=== PATIENT | male | born 1955 | race Caucasian/White ===

== ENCOUNTER 2016-05-09 10:25 | Emergency (ER) | payer OTHER ==
[2016-05-09 10:48] VITALS: RESP 17; TEMP 97.6
--- NOTE | 2016-05-09 11:39 | DI ---
History: Right knee pain. Recent trauma. Procedure: 4 view study. Prior examination: None. Findings: Distal femoral bone infarct identified, incidental finding. Degenerative change of the patellofemoral junction, mild. No effusion seen. Patellofemoral junction a nd both major articular compartments appear normal. Impression: Minimal degenerative changes patellofemoral junction. No narrowing of the joint space griselda ntified, however. Incidental bone infarct distal femur No evidence of fracture
--- NOTE | 2016-05-10 01:36 | PDOC ---
Lower Extremity Injury HPI - General Chief Complaint: Fall Stated Complaint: pain right knee Date Seen by Provider: 05/09/16 Time Seen by Provider: 10:40 Source: POSITIVE: Patient Exam Limitations: POSITIVE: No limitations Nurse's Notes Reviewed & Considered: Yes - History of Present Illness Initial Comments: The patient is a 60-year-old male. He states that 5 days ago he slipped on some ice and "I twisted my right knee". Since then he had some discomfort medial to the right patella. He has been ambulating without difficulty. No swelling. No sensory, motor or vascular deficits Have you received a tetanus shot in the past 10 years?: No Body Location Affected: REPORTS: Lower Extremity (R) Timing: REPORTS: Abrupt Duration: <1 week (5 days) Severity: Mild Quality: REPORTS: "Pain" Location at Time of Onset: REPORTS: Work Context of Injury: REPORTS: Twist Location of Injury: REPORTS: Knee (R) Modifying Factors: improves with: Walking Associated Symptoms: DENIES: Unable to Bear Weight, Snapping, Popping Sensation , Became Dizzy, Fainted, Seizure, Other Any Prior Injuries Related to Current Complaint?: No - Patient Home Medications Home Medications: Home Medications Fluoxetine HCl [Prozac] 1 cap PO QD #90 cap 03/05/16 Olanzapine [Zyprexa] 10 mg PO QD #30 tab 03/05/16 Omeprazole 1 cap PO DAILY #90 cap 03/05/16 Pravastatin Sodium [Pravachol] 1 tab PO QD #90 tab 03/05/16 Tamsulosin HCl [Flomax] 0.4 mg PO DAILY #90 cap 03/05/16 Venlafaxine HCl [Venlafaxine Hcl Er] 75 mg PO QD #90 cap 03/05/16 - Patient Allergies Allergies/Adverse Reactions: Allergies Allergy/AdvReac Type Severity Reaction Status Date / Time Penicillins Allergy Intermediate CHILDHOOD Verified 05/09/16 10:34 / RASH codeine AdvReac Intermediate ITCHING Verified 05/09/16 10:34 Past Medical History - heen HEENT History: Denies History Cardiovascular History: Hyperlipidemia Respiratory History: Denies History Gastrointestinal History: GERD Genitourinary History: Other (please comment) Additional Genitourinary History: BPH Endocrine History: Denies History Musculoskeletal History: Denies History Prosthesis or Implant: No Neurological History: Denies History Blood Disorders: Denies History Psychiatric History: Depression History of Sexually Transmitted Diseases: No Cancer History: Denies History In Past Year Been Physically Harmed or Verbally Threatened: No (PER PATIENT) History of MDRO: No History of Other Communicable Diseases: No Tobacco Use: Never Smoker Alcohol Use: Rarely Substance Use Type: None Previous Surgical History: Yes Type / Date of Surgery: LEFT INGUINAL HERNIA REPAIR, TONSILLECTOMY Anesthesia Reactions: No Malignant Hyperthermia: No Family History of Malignant Hyperthermia: No Significant Family History: No pertinent family hx Past Medical History Reviewed: Reviewed - No Changes ROS - Limitations ROS Limitations: No Limitations Constitution: REPORTS: Denies Symptoms Cardiovascular: REPORTS: Denies Cardiac Symptoms Respiratory: REPORTS: Denies Resp Symptoms Neurological: REPORTS: Denies Neuro Symptoms Gastrointestinal: REPORTS: Denies GI Symptoms Endocrine: REPORTS: Denies Symptoms Musculoskeletal: REPORTS: Joint Pain (Right knee) Genitourinary: REPORTS: Denies Symptoms Eyes: REPORTS: Denies Symptoms ENT: REPORTS: Denies Symptoms Skin: REPORTS: Denies Skin Symptoms Lympathic: REPORTS: Denies Lympathic Symptoms Immunologic: POSITIVE: Denies Symptoms Psychiatric: POSITIVE: Denies Psych Symptoms Lower Ext Complaint Exam - General Appearance General Appearance: POSITIVE: Alert, Cooperative, No Acute Distress Reflexes: Patellar (R): 2+, Patellar (L): 2+ - Extremities Lower Extremity: POSITIVE: Normal ROM, Normal Color, Normal Temperature, Skin Intact, No Joint Swelling, No Evidence of Ischemia, Stable, Soft Tissue Tenderness (Mild, medial to right patella), Bony Tenderness (Mild, medial to right patella), See Diagram. NEGATIVE: Swelling, Ecchymosis, Erythema, Deformity, Pulse Deficit, Limited ROM, Laxity of Ligaments, Joint Effusion, Hip Pain on Leg Movement Lower Extremity Ligament: NEGATIVE: Pain on Anterior Drawer, Pain on Posterior Drawer, Laxity on Anterior Drawer, Laxity w/Posterior Drawer, Pain on Medial Stress, Pain on Lateral Stress, Laxity on Medial Stress, Laxity on Lateral Stress, Other Gait: POSITIVE: Normal Neurovascular/Tendon: POSITIVE: Sensation Normal, Motor Normal, No Vascular Compromise Skin: POSITIVE: Warm, Dry - Neck / Back Neck/Back: POSITIVE: Normal Inspection, Non-Tender, Painless ROM - Respiratory / CVS Respiratory / CVS: POSITIVE: Chest Non Tender, No Ecchymosis, Breath Sounds Normal, No Respiratory Distress, Heart Sounds Normal, Regular Rate/Rhythm Peripheral Pulses: Radial (R): 2+, Radial (L): 2+, Dorsalis-pedis (R): 2+, Dorsalis-pedis (L): 2+ Images - Lower Extremities Lower Extremities: 1 - Discomfort on palpation; mild Procedures - Splinting Time Splint Applied: 11:00 Location: patellar cut out brace, right knee Pre-Proc Neuro Vasc Exam: Normal Splint Type: Other (Patellar cut out knee brace, right) Applied By:: Nurse Post-Proc Neuro Vasc Exam: Normal Lower Ext Complaint Progress - Results Reviewed by me Xrays/CTs/US Reviewed by me: Yes Discussed with Radiologist: No Radiology Findings: Right knee normal except for probable remote bone infarct distal femur - Patient's Progress Pain Medication Addressed: POSITIVE: Yes (Recommended Advil or Tylenol) School/Work Release Addressed: POSITIVE: Not Applicable Re-Examine Time:: 11:20 Status: POSITIVE: Unchanged, Re-Examined - Consult Counseled: POSITIVE: Patient, RE: Radiology Results, RE: DX, RE: Need for F/U Patient Care Time - Estimated PCT Patient Care Time (In Minutes): 19 Vital Signs - VS Reviewed Vital Signs Reviewed: Yes Discharge Clinical Impression: Knee strain Discharge Disposition: Discharged to Home Condition: Stable Patient Instructions Given at Discharge: Knee Pain (ED) Additional Instructions: I believe you have strained your knee. There are no fractures or dislocations, or joint effusions, on x-ray. Please where your knee brace. Advil or Tylenol for discomfort. Avoid unnecessary climbing. Cool compresses to knee. Follow- up with your primary care provider. Return here anytime if condition worsens in any way. Follow Up With: FRAN MENDEZ [Primary Care Provider] - (Instructions as above. Follow-up with your primary care provider or orthopedist. Return here as necessary.)
== END 2016-05-09 11:44 | disposition home or self-care (01) ==
LOC: ER 10:25
DX: S83.92XA Sprain of unspecified site of left knee, initial encounter (principal); W00.0XXA Fall on same level due to ice and snow, initial encounter; Y99.0 Civilian activity done for income or pay
CPT/HCPCS: 73562; 99282